=== PATIENT | female | born 1950 | race African-American/Black ===

== ENCOUNTER 2023-10-18 14:34 | Emergency (ER) | payer BC, OTHER ==
[~2023-10-18] VITALS: Ht 160 cm; Wt 81.6 kg
[2023-10-18 16:05] VITALS: BP 114/69; PULSE 60; RESP 19; TEMP 98.5; O2SAT 97
[2023-10-18] MEDS: HYDROcodone-ACET 10/325MG TAB PO ONE (16:05)
[2023-10-18] MEDS: cloNIDine HCL 0.1 MG TAB PO ONE (16:05)
[2023-10-18 18:28] LABS: Urine Bacteria FEW /hpf (None Seen); Urine Blood Negative /uL (Negative); Urine Clarity Clear (Clear); Urine Color Light-Yellow (Yellow); Urine Protein, UAD Negative (Negative); Urine Specific Gravity 1.012 (1.001-1.035); Urine Urobilinogen Normal (Negative); Urine WBC 2 /hpf (0 - 5)
[2023-10-18] MEDS ORDERED: CEPH500C PO (18:41)
[2023-10-18] MEDS ORDERED: HYDR-4902 PO (18:41)
== END 2023-10-18 18:57 | disposition home or self-care (01) ==
LOC: ER 14:34
DX: M25.571 Pain in right ankle and joints of right foot (principal); N39.0 Urinary tract infection, site not specified; I10 Essential (primary) hypertension; E11.9 Type 2 diabetes mellitus without complications; R60.0 Localized edema; Z86.73 Personal history of transient ischemic attack (TIA), and cerebral infarction without residual deficits
CPT/HCPCS: 73610; 81001; 93971